=== PATIENT | female | born 1960 | race Caucasian/White ===

== ENCOUNTER 2024-07-10 12:13 | Emergency (ER) | payer OTHER, SELFPAY ==
[2024-07-10 12:26] VITALS: BP 127/77
--- NOTE | 2024-07-10 13:29 | ED.MUSCINJ ---
HPI-Injury
General
Chief Complaint: Musculo-Skeletal Complaint
Source: patient
Exam Limitations: none
Time Seen by Provider: 07/10/24 13:02
History of Present Illness-Injury
Initial Injury comments:
63-year-old female presents complaining of right posterior knee pain starting yesterday. Dog ran into her and she bent her right knee awkwardly. She felt a pulling sensation in the back of her knee. Since then she has had trouble bearing weight.
No shortness of breath. No other complaints at this time
Past History
Past History
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
ED Past Surgical History: and Gynecological
Social History
Tobacco: Non-smoker
Phy Exam
Physical Exam
Physical Exam:
General: Well-appearing female no acute respiratory distress
Musculoskeletal exam: The patient is tender over the posterior aspect of the right knee. There is no effusion. She has increased pain with knee flexion. The knee is stable to ligament exam. The ankle is nontender. Achilles tendon is palpable
Skin is intact without laceration or abrasion or erythema
Injury Course
Orders/Labs/Results
Orders:
Orders
07/10/24 12:28
Knee, Right 4 or More Views [CR Knee- Right 4 Or More View*] Urgent
Comment:
Reason For Exam: injury
07/10/24 13:29
Knee Immobilizer Right-Treatme ONCE
MDM/Problems Addressed
Differential Diagnosis Includes:
Right knee pain. She felt a popping sensation in the back of her knee yesterday. Consider sprain versus strain unlikely to be dislocation or fracture
X-rays of the knee were ordered through triage which are negative. Of note patient surgically had her fibula removed for construction of her face
I suspect underlying sprain or strain of the posterior knee. Recommend knee immobilizer and orthopedic follow-up. Stable for discharge
*Critical Care Note
Total Time (30-74mins, 75-104mins- exclusive of procedures): Not Applicable
ED Attending Note
-
Portions of this chart may have been created with voice recognition software.� Occasional wrong word or��sound alike� substitutions may have occurred due to the inherent limitations of voice recognition software.
Discharge Plan
Departure
Patient Disposition: Home (Routine Discharge)
Date of Disposition: 07/10/24
Time of Disposition: 13:35
Patient with high blood pressure during this ER visit?: No
Discharge Problem:
Knee sprain
Instructions: Muscle and Bone Pain (DC)
Prescriptions:
No Action
oxycodone 5 mg tablet
5 mg PO Q4H PRN (Reason: pain) Qty: 10 0RF
Referrals:
Huy Tapia MD [Active] -
Darien Johansen CRNP [Family Provider] -
Activity Restrictions/Additional Instructions:
Use brace for support when ambulating. Continue with Aleve or Tylenol for pain. Follow-up with orthopedics for further evaluation
Interventions
Interventions:
*Risk Screen - Suicide Last Done: 07/10/24 12:26
*General Assessment Last Done: 07/10/24 12:46
*Neglect/Abuse Screening Last Done: 07/10/24 12:26
*ED COVID-19 Vaccine History Last Done: 07/10/24 12:46
ED-Musculoskeletal Assessment Last Done: 07/10/24 12:46
Discharge Date and Time
Print Language: SLOVAK
== END 2024-07-10 13:48 | disposition home or self-care (01) ==
LOC: EMR 12:13
PROVIDERS: EMERGENCY PHYSICIAN Emergency Medicine; FAMILY PHYSICIAN Nurse Practitioner Primary Care
DX: S89.91XA Unspecified injury of right lower leg, initial encounter (principal); W54.1XXA Struck by dog, initial encounter; Y93.K1 Activity, walking an animal
CPT/HCPCS: 99283; 29505; 73564